=== PATIENT | male | born 1965 | race Caucasian/White ===

== ENCOUNTER 2016-11-14 14:00 | Emergency (ER) | payer SELFPAY ==
[2016-11-14] MEDS ORDERED: Adacel (T-DAP) 0.5 ML VIAL ONE (14:15)
[2016-11-14] MEDS ORDERED: Lidocaine 1% 20 ML MDV ONE ×2 (14:30→14:59)
[2016-11-14] MEDS ORDERED: Bacitracin Zinc 1 Packet ONE (14:33)
--- NOTE | 2016-11-14 14:42 | RAD ---
TWO VIEWS OF THE RIGHT FORELEG INDICATIONS: coffee grinder injury to the right leg. FINDINGS: There is a large laceration involving the medial aspect of the right mid foreleg. No radiopaque for eign body is evident. No acute osseous abnormality is evident. IMPRESSION: Soft tissue injury to the right lower extremity. POS: [facility]
== END 2016-11-14 15:28 | disposition home or self-care (01) ==
LOC: NAV ERS 14:00
DX: S81.811A Laceration without foreign body, right lower leg, initial encounter (principal); F17.210 Nicotine dependence, cigarettes, uncomplicated; W45.8XXA Other foreign body or object entering through skin, initial encounter
CPT/HCPCS: 12004; 90471; 90715; J2001

== ENCOUNTER 2021-03-14 11:55 | Emergency (ER) | payer BC ==
[2021-03-14] MEDS ORDERED: Ketorolac Tromethamine 60 MG/2 ML VIAL ONE (12:41)
[2021-03-14 13:17] LABS: Bilirubin Negative (Negative); Blood, Urine Negative (Negative); Clarity Clear (Clear); Glucose, Urine (Dipstick) >=1000 mg/dL (Negative); Ketone, Urine Negative (Negative); Leukocyte Negative (Negative); Nitrite Negative (Negative); Protein, Urine (Dipstick) 30 mg/dL (Neg-Trace); Specific Gravity, Urine 1.025 (1.005-1.030); Urobilinogen 0.2 mg/dL (Less than 2); pH, Urine 5.5 (5.0-9.0)
[2021-03-14 13:25] LABS: WBC/HPF 0-3 HPF (0-3)
== END 2021-03-14 13:04 | disposition short-term general hospital (02) ==
LOC: NAV ERS 11:55
DX: N50.811 Right testicular pain (principal); F17.210 Nicotine dependence, cigarettes, uncomplicated; Z79.899 Other long term (current) drug therapy
CPT/HCPCS: 81003; 81015; 96372; 99284; J1885

== ENCOUNTER 2023-11-01 15:44 | Emergency (ER) | payer BC ==
[2023-11-01] MEDS ORDERED: Ipratropium/Albuterol 3 ML NEB ONE (16:20)
[2023-11-01] MEDS ORDERED: Aspirin Chewable 81 MG TAB ONE (16:20)
[2023-11-01] MEDS ORDERED: Pantoprazole 40 MG VIAL ONE (16:21)
[2023-11-01] MEDS ORDERED: Mag-Al Plus 1200/1200/120 MG (30 mL) UDCUP ONE (16:21)
[2023-11-01] MEDS ORDERED: Lidocaine 2% Viscous 100 ML BOTTLE ONE (16:21)
[2023-11-01 16:25] LABS: #Basophils 0.1 thou/uL (0.0-0.2); #Eosinphils 0.1 thou/uL (0.0-0.7); #Lymphocytes 2.3 thou/uL (1.20-3.40); #Monocytes 0.8 thou/uL (0.11-0.59); #Neutrophils 10.2 thou/uL (1.40-6.50); %Basophils 0.7 % (0.0-1.0); %Eosinophils 0.4 % (0.0-10.0); %Lymphocytes 17.3 % (21.0-51.0); %Monocytes 5.6 % (0.0-10.0); Hematocrit 48.6 % (42.0-52.0); Hemoglobin 17.6 g/dL (14.0-18.0); Mean Corpuscular HGB CONC 36.2 g/dL (32.0-36.0); Mean Corpuscular Hemoglobin 32.2 pg (27.0-31.0); Mean Corpuscular Volume 89.1 fl (78.0-98.0); Mean Platelet Volume 7.6 fL (7.4-10.4); Platelet Count 313 10x3/uL (130-400); RBC Distribution Width 10.9 % (11.5-14.5); Red Blood Cell (RBC) Count 5.46 mill/uL (4.70-6.10); White Blood Cell (WBC) Count 13.4 10x3/uL (4.8-10.8)
[2023-11-01] MEDS ORDERED: Nitroglycerin 0.4 MG TAB 1 EACH ONE ×2 (16:34→19:09)
[2023-11-01 16:38] LABS: ALT (SGPT) 42 U/L (8-55); AST (SGOT) 82 U/L (5-34); Albumin 4.2 g/dL (3.5-5.0); Alkaline Phosphatase 72 U/L (40-110); Anion Gap 18 mmol/L (10-20); BUN (Urea Nitrogen) 20 mg/dL (8.4-25.7); Bilirubin, Total 0.4 mg/dL (0.2-1.2); Calc. Creatinine Clearance 0 mL/min (70-130); Calcium 9.4 mg/dL (7.8-10.44); Carbon Dioxide 21 mmol/L (22-29); Chloride 96 mmol/L (98-107); Estimated GFR 101; Globulin 3.6 g/dL (2.4-3.5); Glucose 316 mg/dL (70-105); Potassium 4.4 mmol/L (3.5-5.1); Protein, Total 7.8 g/dL (6.0-8.3); Sodium 131 mmol/L (136-145)
[2023-11-01 16:50] LABS: Troponin I 4.379 ng/mL (< 0.028)
[2023-11-01] MEDS ORDERED: Morphine 2 MG/ML VIAL ONE ×2 (17:05→17:24)
[2023-11-01] MEDS ORDERED: Heparin 5,000 UNITS/ML VIAL ONE (17:11)
[2023-11-01] MEDS ORDERED: Heparin 10,000 UNITS/ 10 ML VIAL ONE (17:42)
[2023-11-01] MEDS ORDERED: Heparin 25,000 units/D5W 500 ML ONE (17:42)
[2023-11-01] MEDS ORDERED: Nitroglycerin 50 MG/250 ML BOT 250 ML ONE (17:42)
[2023-11-01] MEDS ORDERED: Furosemide 20 MG (2 mL) VIAL ONE (19:08)
[2023-11-01] MEDS ORDERED: Enoxaparin 80 MG (0.8 mL) SYRINGE ONE (19:09)
== END 2023-11-01 17:42 | disposition short-term general hospital (02) ==
LOC: NAV ERS 15:44
DX: I21.4 Non-ST elevation (NSTEMI) myocardial infarction (principal); A41.9 Sepsis, unspecified organism; J20.9 Acute bronchitis, unspecified; J44.0 Chronic obstructive pulmonary disease with (acute) lower respiratory infection; R79.89 Other specified abnormal findings of blood chemistry; F17.210 Nicotine dependence, cigarettes, uncomplicated
CPT/HCPCS: 71046; 80053; 83605; 83880; 84443; 84484; 85025; 85379; 87040; 93005; 94640; 94760; 96365; 96368; 96375; 96376; C9113; J1644; J1650; J1940; J2272; J7620